=== PATIENT | male | born 1935 | race Caucasian/White ===

== ENCOUNTER → 2017-06-28 | Outpatient (CLI) | payer OTHER ==
[~2017-06-28] MED LIST: ADVIN25/60 INH; PRED10TA PO
[2017-06-28 16:56] LABS: BASO % 0.2 %; BASO ABS # 0.01 K/uL (0-0.2); EOS % 1.2 %; EOS ABS # 0.08 K/uL (0-0.5); HEMATOCRIT 39.1 % (42-52); HEMOGLOBIN 13.1 g/dL (14.0-18.0); IG# 0.02 K/uL (0.00-0.02); LYMPH % 23.4 %; LYMPH ABS # 1.55 K/uL (1.2-3.4); MEAN CELL VOLUME 95.8 fL (80-100); MEAN CORPUSCULAR HEMOGLOBIN 32.1 pg (25-34); MEAN CORPUSCULAR HGB CONC 33.5 g/dl (32-36); MEAN PLATELET VOLUME 10.8 fL (7.4-10.4); MONO % 8.4 %; MONO ABS # 0.56 K/uL (0.11-0.59); NEUT % 66.5 %; NEUT ABS # 4.41 K/uL (1.4-6.5); PLATELET COUNT 222 K/uL (130-400); RED CELL DISTRIBUTION WIDTH CV 12.9 % (11.5-14.5); RED CELL DISTRIBUTION WIDTH SD 44.9 fL (36.4-46.3); WHITE BLOOD COUNT 6.63 K/uL (4.8-10.8)
[2017-06-28 17:07] LABS: ALBUMIN 3.6 gm/dl (3.4-5.0); ALT/SGPT 23 U/L (12-78); AST/SGOT 22 U/L (15-37); BLOOD UREA NITROGEN 17 mg/dl (7-18); CALCIUM 8.5 mg/dl (8.5-10.1); CARBON DIOXIDE 28 mmol/L (21-32); CHOLESTEROL 169 mg/dl (0-200); CREATININE 1.03 mg/dl (0.60-1.40); GLUCOSE 93 mg/dl (70-99); POTASSIUM 4.4 mmol/L (3.5-5.1); SODIUM 139 mmol/L (136-145)
[2017-06-28 17:10] LABS: ALKALINE PHOSPHATASE 70 U/L (45-117); LDL CHOLESTEROL CALCULATED 80 mg/dl; TOTAL PROTEIN 6.9 gm/dl (6.4-8.2)
== END | disposition home or self-care (01) ==
LOC: C.LAB 11:55
PROVIDERS: ATTEND Internal Medicine Geriatric Medicine
DX: D64.9 Anemia, unspecified (principal); E78.5 Hyperlipidemia, unspecified

== ENCOUNTER 2024-12-30 12:50 | Observation (INO) ==
--- NOTE | 2024-12-30 13:05 | Emergency Department Note ---
Impression & Plan Syncope and collapse, Acute dehydration ED Provider Note Name: JOHN CURIEL Age: 89 Sex: Male Arrives Via: Ambulance Informant: Patient, son ED Provider: Cayetano Caruso MD Chief Complaint: Syncope Impression: As per impressions above Medical Decision Making: Pleasant 89-year-old gentleman arrives to the ER after a syncopal event at [facility]. According to son syncopal event actually was almost 30 minutes in length where initially EMS had reported was a few minutes. On arrival to ER patient is awake alert oriented neurologically intact. He is appears a bit confused by what ever thing it happened but he is not in any distress here in the ER. Vital signs show mild hypotension and labs show mildly elevated BUN. Suspect much of this is dehydrational and thus he was given IV fluids. He appears better with fluids as well. Initial EKG and troponin are unremarkable. Given the prolonged syncopal event no I do not think it would be safe to discharge patient at this time and he was discussed with hospital service will further evaluate and manage. Patient does not have any significant shortness of breath I do not feel this is consistent with PE. He did have a CT of the head which is unremarkable ruling out intracranial hemorrhage or mass effect. Without neurodeficits would hold off on CT angiography or immediate MRI at this point. Triage/Nursing Notes reviewed by Me External Chart Review by me: PCP note from 10/08/2024 was reviewed by me for past medical history. Differential:Vasovagal event, dehydration, infection, hypoglycemia, electrolyte abnormalities, cardiac sources, intracerebral event, pulmonary embolism, seizure, toxicologic, neurologic, as well as other pathologies. Vital Signs: reviewed and remarkable for hypertension for patient Interventions: Normal saline bolus 1 L IV Labs:ED labs Reviewed by me and remarkable for no significant abnormalities Imaging:CT of the head without contrast as per my informal interpretation reveals no intracranial hemorrhage or mass effect. Confirmed by radiologist 1 view chest x-ray as per my interpretation no infiltrate or effusion or pneumothorax appreciated. EKG:As per my interpretation. Indication syncope. Sinus at 66 bpm with a QTc of 448. No ischemia appreciated. When compared to EKG of December 01, 2017 no significant change in morphology PVCs noted.Cardiac/Tele Monitoring: Cardiac Monitoring: An Order was placed for continuous cardiac monitoring. The monitor shows a rate of 60 with a normal sinus rhythm. Consults:Discussed with Dr. Santiago of the hospitalist service who will further evaluate Plan: Disposition:Hospitalization. Condition: Fair History of Present Illness: 89-year-old gentleman arrives for evaluation of a syncopal event. Patient was at [facility] when he passed out. Apparently was quite diaphoretic and fong appearing. Patient slowly came back to. Patient states he is feeling well. He denies any headache, neck pain, nausea. Denies any chest pain, shortness of breath, lightheadedness, abdominal pain or other concerning signs or symptoms. Patient does note that he gets lightheaded with standing for the last several years. He also has a history of anemia. Denies any other concerning changes. No medications prior to arrival. Past Medical History:See Below Home Medications:See Below Allergies: Bactrim Vitals:Blood Pressure: 108/60, Pulse 70, RR 16, T []C, O2 98% on RA Physical Exam: GENERAL: Patient is elderly/frail/dehydrated appearing and in no acute distress. Pale conjunctiva RESPIRATORY: No dyspnea. Clear to auscultation and equal bilaterally. CARDIOVASCULAR: Regular rate and rhythm.No murmur appreciated. GASTROINTESTINAL: Abdomen soft, non-tender, no peritonitis. EXTREMITIES: Mildly swollen left lower leg. Patient states this is chronic. Normal motion all extremities, no cyanosis, no edema. NEUROLOGIC: Alert and oriented. No focal neurologic deficits appreciated SKIN: No rash, no jaundice, no diaphoresis. PSYCH: Appropriate GCS: 15 ED Course: Times/Reassessments: Patient does seem a bit better with IV fluids. He is agreeable to hospitalization given the syncope Cayetano Caruso MD Past Med/Surg History Problem List (Updated 12/31/24 @ 10:30 by Cayetano Caruso MD) Acute dehydration (Acute) Syncope and collapse (Acute) Syncope Non-healing skin lesion Lower urinary tract symptoms (LUTS) Hx of brachytherapy Urinary Incontinence Dermatitis associated with moisture Skin tag Leg edema Left leg 2/2 Venous insufficiency in [place] 07/2022. Urinary frequency Ambulatory dysfunction Asthma Dyslipidemia (Chronic) Dizziness Anemia (Chronic) Antiplatelet or antithrombotic long-term use TRUONG (dyspnea on exertion) Positive cardiac stress test Psoriasis Associated with Arthritis - On Prednisone 5mg/day shelter. Osteopenia (Chronic) Medical History (Updated 12/31/24 @ 10:30 by Cayetano Caruso MD) H/O prostate cancer (~2004) Palpitations Syncope (11/08/21) Nonsustained paroxysmal ventricular tachycardia Nonsustained paroxysmal supraventricular tachycardia Normal left ventricular systolic function Sensorineural hearing loss (SNHL) of both ears History of smokeless tobacco use Tubular adenoma of colon History of SCC (squamous cell carcinoma) of skin History of basal cell carcinoma Former smoker Lower GI bleed Dyslipidemia Asthma Hiatal hernia Surgical History History of surgery Prostate surgery History of gastric surgery H/O colonoscopy H/O right knee surgery History of brachytherapy Family History Unknown Brain tumor Father Prostate cancer Brother Stroke Other Asthma Breast cancer Cancer Hearing loss Denies family history of Ovarian cancer Diabetes No family history of adverse response to anesthesia No family history of bleeding disorder Heart disease Allergies Myocardial infarction Lung cancer Colorectal cancer Hypertension Social History (Updated 10/08/24 @ 14:51 by Rosario Tai LPN) Smoking Status: Former smoker Tobacco Type: Cigars Age Started Using Tobacco: 79; Age Quit Using Tobacco: 89; Second Hand Exposure: No; Do You Dip or Chew Tobacco: Yes; Hx Alcohol Use: No Hx Substance Use: No Preferred Language: Macedonian Visual Impairment: Partially Limited Hearing Ability: Use of Hearing Aid 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 Required: No Beliefs That Will Affect Care: None marital status: Current Living Situation: Spouse Current Living Situation Comment: 2 story house with current occupational status: retired How many Children do You have: 4 Feels Safe at Home: Yes Safety Concerns: Feels Safe At This Time Childhood Exposure to Second-Hand Smoke: No Diet: regular caffeine: Yes during the past year weight has: decreased > 10 lbs Dental Care, Regularly: No Physical Activity Frequency: Does not Exercise Seatbelt Use: never Sunscreen Use: No Assistive Devices: Denture - Upper, Denture - Lower and Hearing Aid - Bilateral Allergies Allergies Allergy/AdvReac Type Severity Reaction Status Date / Time sulfamethoxazole AdvReac Mild Nausea Verified 10/17/24 08:35 [From Bactrim] trimethoprim [From Bactrim] AdvReac Mild Nausea Verified 10/17/24 08:35 Home Meds Home Medications Medication Instructions Recorded Confirmed acetaminophen 500 mg tablet 500 mg PO TID PRN Pain #90 tabs 09/26/18 12/30/24 Previous Rx's Medication Instructions Recorded aspirin 81 mg tablet,delayed 81 mg PO DAILY #90 tabs 11/09/19 release (Adult Low Dose Aspirin) albuterol sulfate 90 mcg/actuation 2 puff inhalation QID PRN 12/27/23 aerosol inhaler shortness of breath or wheezing #6.7 grams simvastatin 20 mg tablet 20 mg PO HS #90 tabs 02/08/24 triamcinolone acetonide 0.1 % 1 applic topical BID PRN psoriasis 05/18/24 topical ointment #80 grams budesonide-formoterol HFA 160 1 inh inhalation BID #10.2 grams 10/08/24 mcg-4.5 mcg/actuation aerosol inhaler (Symbicort) meloxicam 7.5 mg tablet 7.5 mg PO DAILY sciatic #90 tabs 10/19/24 Results & Data (ED) Vital Signs Vital Signs - 24 hr 12/30/24 12:59 12/30/24 13:07 12/30/24 13:33 Temperature 36.4 C L Temperature Source Oral Pulse Rate - Lying 65 Pulse Rate - Sitting 71 Pulse Rate - Standing 74 Pulse Rate 64 71 Respiratory Rate 14 Blood Pressure - Lying 129/70 Blood Pressure - Sitting 136/70 Blood Pressure- Standing 117/58 L Blood Pressure 108/70 Blood Pressure Mean 82 Pulse Oximetry 95 Oxygen Delivery Method Room Air Sepsis Recent Fever Within 48 Hours No Sepsis New/Unexplained Change in Mental Status N/A Sepsis Action Taken by Nursing No Action Required Laboratory Data 12/30/24 13:01 12/30/24 13:01 Lab Results 12/30/24 Range/Units 13:01 WBC 9.02 (4.8-10.8) K/ul RBC 3.53 L (4.70-6.10) M/uL Hgb 11.3 L (14.0-18.0) g/dl Hct 34.3 L (42.0-52.0) % MCV 97.2 (80.0-100.0) fL MCH 32.0 (25.0-34.0) pg MCHC 32.9 (32.0-36.0) g/dL RDW Std Deviation 43.3 (36.4-46.3) fL RDW Coeff of Ajay 12.0 (11.5-14.5) % Plt Count 164 (130-400) K/uL MPV 10.3 (9.4-12.4) fL Immature Gran % (Auto) 0.3 % Neut % (Auto) 82.3 % Lymph % (Auto) 9.3 % Towns % (Auto) 6.7 % Eos % (Auto) 1.2 % Baso % (Auto) 0.2 % Neut # (Auto) 7.42 H (1.40-6.50) K/uL Lymph # (Auto) 0.84 L (1.20-3.40) K/uL [place] # (Auto) 0.60 H (0.11-0.59) K/uL Eos # (Auto) 0.11 (0.00-0.50) K/uL Baso # (Auto) 0.02 (0.00-0.20) K/uL Immature Gran # (Auto) 0.03 (0.01-0.20) K/uL Sodium 138 (136-145) mmol/L Potassium 4.4 (3.5-5.1) mmol/L Chloride 105 (98-107) mmol/L Carbon Dioxide 26 (21-32) mmol/L Anion Gap 7 (3-11) BUN 29 H (6-23) mg/dl Creatinine 1.52 H (0.6-1.4) mg/dl Est Cr Clr Drug Dosing 39.3 ml/min eGFR 44.07 BUN/Creatinine Ratio 19.1 (10-20) Glucose 116 H (70-99(Fasting)) mg/dl Calcium 8.9 (8.6-10.3) mg/dl Magnesium 2.0 (1.7-2.4) mg/dl Troponin I High Sens 7.6 (0-20) pg/ml C-Reactive Protein < 0.50 (0-0.5) mg/dl Procalcitonin 0.05 (0-0.5) ng/ml Administered Medications Fluticasone/Vilanterol (Fluticasone/Vilanterol 200/25mcg 14 Puffs/Inhaler) 1 puffs INH DAILY GARTH; Protocol Stop: 01/30/25 08:59 Last Admin: 12/31/24 09:01 Dose: 1 puffs Documented By: CMM Ceftriaxone Sodium (Rocephin) 2,000 mg in 50 mls @ 100 mls/hr IV Q24H GARTH Stop: 01/04/25 16:29 Last Infusion: 12/30/24 18:10 Dose: Infused Documented By: Admin: 12/30/24 17:29 Dose: 100 mls/hr Documented By: MARY Simvastatin (Simvastatin 20 Mg Tab) 20 mg PO HS GARTH Stop: 01/29/25 20:59 Last Admin: 12/30/24 20:03 Dose: 20 mg Documented By: JEREL Discontinued Medications Sodium Chloride (Nss) 1,000 mls @ 999 mls/hr IV .Q1H1M ONE Stop: 12/30/24 14:02 Last Infusion: 12/30/24 15:16 Dose: Infused Documented By: Admin: 12/30/24 13:42 Dose: 999 mls/hr Documented By: PAULO Lactated Ringer's (Lr) 1,000 mls @ 125 mls/hr IV .Q8H GARTH Stop: 12/30/24 23:44 Last Infusion: 12/31/24 00:59 Dose: Infused Documented By: Infusion: 12/30/24 18:10 Dose: 125 mls/hr Documented By: Infusion: 12/30/24 17:33 Dose: 0 mls/hr Documented By: Admin: 12/30/24 15:41 Dose: 125 mls/hr Documented By: AMS Discharge Plan Visit Data Chief Complaint: Syncope ED Provider: Cayetano Caruso Discharge Problem: Syncope and collapse, Acute dehydration Patient Disposition: Admitted As Inpatient Condition: Fair Discharge Instructions Interventions: ED Discharge Assessment Last Done: 12/30/24 15:12
[2024-12-30 13:24] LABS: Hematocrit (blood only) 34.3 % (42.0-52.0); Hemoglobin 11.3 g/dl (14.0-18.0); Immature Granulocytes # (auto) 0.03 K/uL (0.01-0.20); Immature Granulocytes % (auto) 0.3 %; Mean Corpuscular Hemoglobin 32.0 pg (25.0-34.0); Mean Corpuscular Volume 97.2 fL (80.0-100.0); Platelet Count 164 K/uL (130-400); RDW Standard Deviation 43.3 fL (36.4-46.3); Red Blood Count 3.53 M/uL (4.70-6.10); White Blood Count 9.02 K/ul (4.8-10.8)
--- NOTE | 2024-12-30 13:33 | XRay Report ---
XR chest 1V portable CLINICAL HISTORY: syncope COMPARISON STUDY: 12/27/2023 FINDINGS: Heart size and pulmonary vasculature are normal. No consolidation or pleural effusion seen. No pneumothorax. Stable mild scarring or atelectasis at the left base. IMPRESSION: No acute findings. ACT 112: Negative or not required by law. Electronically signed by: Douglas Gómez M.D. 12/30/2024 1:32 PM
[2024-12-30 13:39] LABS: Anion Gap 7 (3-11); Blood Urea Nitrogen 29 mg/dl (6-23); Calcium 8.9 mg/dl (8.6-10.3); Carbon Dioxide 26 mmol/L (21-32); Chloride 105 mmol/L (98-107); Creatinine Clr Calc Pharmacy 39.3 ml/min; Glucose 116 mg/dl (70-99(Fasting)); Magnesium 2.0 mg/dl (1.7-2.4); Potassium 4.4 mmol/L (3.5-5.1); Sodium 138 mmol/L (136-145)
[2024-12-30] MEDS: SODIUM CHLORIDE 0.9% 1,000 ML IV ONE (13:42)
--- NOTE | 2024-12-30 13:51 | CT Scan Report ---
CT head/brain wo con CLINICAL HISTORY: syncope. TECHNIQUE: Multiple axial CT images of the head were obtained without contrast. A dose lowering tech nique was utilized adhering to the principles of ALARA. CT DOSE: 625.8 mGy.cm COMPARISON: 04/10/2020 FINDINGS: No intracranial hemorrhage seen. No mass effect, midline shift, or hydrocephalus. There are mild chronic small vessel ischemic changes. No skull fracture seen. Visualized paranasal sinuses and mastoid air cells are clear. IMPRESSION: No acute findings. ACT 112: Negative or not required by law. The above report was generated using voice recognition software. It may contain grammatical, syntax o r spelling errors. Electronically signed by: Douglas Gómez M.D. 12/30/2024 1:50 PM
[2024-12-30] MEDS ORDERED: ACETAMINOPHEN 325 MG TAB PO PRN (15:16)
[2024-12-30 15:36] LABS: Influenza A virus by PCR Negative (Neg); Influenza B virus by PCR Negative (Neg); SARS CoV2 RNA(COVID-19) Ceph NEGATIVE (Negative)
[2024-12-30] MEDS ORDERED: TRIAMCINOLONE ACET 0.1% OINT 15 GM TUBE TOP PRN (15:38)
[2024-12-30] MEDS ORDERED: ALBUTEROL HFA 8 GM INHALER INH PRN (15:38)
[2024-12-30] MEDS ORDERED: ACETAMINOPHEN 500 MG TAB PO PRN (15:38)
--- NOTE | 2024-12-30 15:40 | History & Physical Report ---
Date of Service December 30, 2024 Assessment & Plan (1) Syncope: (2) Leg edema: (3) Psoriasis: Plan #Syncope Suspect cause is multifactorial with baseline dizziness with ambulatory dysfunction (Prior evaluation with MRI, IAC and ENT with no change in underlying symptoms or additional treatment per prior Wellness visit), dehydration, working hard this morning prior to prolonged standing at latter day with URI Sx for last 2 days precipitating a vagal mediated syncope Suspect prolonged as reportedly still sitting up when his son arrived. Appeared pale and frothing at mouth. Previous syncope in October 2021 sounds similar with initial pain in back and felt dizziness Observe overnight for arrhythmia Apical murmur on exam - will update TTE Left leg more swollen than right - this appears to be chronic with prior negative venous doppler in 2022 and GSV ablation for venous reflux, no further workup of this is required UA pending #Psoriasis with arthritis Continue steroids cream PRN #Asthma Continue Symbicort or hospital equivalent VTE Prophylaxis - low risk observation overnight Disposition - observation to med/tele, PT/OT, if all testing normal and doing well with PT/OT tomorrow can likely be discharged at that time Admission and Anticipated Discharge Date Admission Date: December 30, 2024 History of Present Illness Chief Complaint: Syncope Primary Care Provider: Robert Antunez DO [place] Briceno is an 89 year old male who presents to the ER with a syncopal event while standing at latter day. The patient remembers feeling faint and then doesn't remember anything else until being transported to the emergency room. He notes having a cough the last few days but otherwise has felt well and was going out on 4 wheelers earlier today and climbing ladders up a tree. Story confirmed with son at bedside. His son was informed that his father had fainted and was not feeling well at latter day. By the time his son got to him, it was around 30 minutes later, he was still unresponsive, baker color, sitting upright and frothing from the mouth. He currently feels at his baseline. No fever, chills, gastrointestinal or urinary symptoms. No one sided weakness or facial droop. No change in speech, hearing or vision. Allergies Allergy/AdvReac Type Severity Reaction Status Date / Time sulfamethoxazole AdvReac Mild Nausea Verified 10/17/24 08:35 [From Bactrim] trimethoprim [From Bactrim] AdvReac Mild Nausea Verified 10/17/24 08:35 Home Medications Medication Instructions Recorded Confirmed Type acetaminophen 500 mg tablet 500 mg PO TID PRN Pain #90 tabs 09/26/18 12/30/24 History aspirin 81 mg tablet,delayed 81 mg PO DAILY #90 tabs 11/09/19 12/30/24 Rx release (Adult Low Dose Aspirin) albuterol sulfate 90 mcg/actuation 2 puff inhalation QID PRN 12/27/23 12/30/24 Rx aerosol inhaler shortness of breath or wheezing #6.7 grams simvastatin 20 mg tablet 20 mg PO HS #90 tabs 02/08/24 12/30/24 Rx triamcinolone acetonide 0.1 % 1 applic topical BID PRN psoriasis 05/18/24 12/30/24 Rx topical ointment #80 grams budesonide-formoterol HFA 160 1 inh inhalation BID #10.2 grams 10/08/24 12/30/24 Rx mcg-4.5 mcg/actuation aerosol inhaler (Symbicort) meloxicam 7.5 mg tablet 7.5 mg PO DAILY sciatic #90 tabs 10/19/24 12/30/24 Rx Past Med/Surg History Problem List (Updated 12/31/24 @ 10:30 by Cayetano Caruso MD) Acute dehydration (Acute) Syncope and collapse (Acute) Syncope Non-healing skin lesion Lower urinary tract symptoms (LUTS) Hx of brachytherapy Urinary Incontinence Dermatitis associated with moisture Skin tag Leg edema Left leg 2/2 Venous insufficiency in [facility] 07/2022. 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 Osteopenia (Chronic) Medical History (Updated 12/31/24 @ 10:30 by Cayetano Caruso MD) H/O prostate cancer (~2004) Palpitations Syncope (11/08/21) Nonsustained paroxysmal ventricular tachycardia Nonsustained paroxysmal supraventricular tachycardia Normal left ventricular systolic function Sensorineural hearing loss (SNHL) of both ears History of smokeless tobacco use Tubular adenoma of colon History of SCC (squamous cell carcinoma) of skin History of basal cell carcinoma Former smoker Lower GI bleed Dyslipidemia Asthma Hiatal hernia Surgical History History of surgery Prostate surgery History of gastric surgery H/O colonoscopy H/O right knee surgery History of brachytherapy Family History Unknown Brain tumor Father Prostate cancer Brother Stroke Other Asthma Breast cancer Cancer Hearing loss Denies family history of Ovarian cancer Diabetes No family history of adverse response to anesthesia No family history of bleeding disorder Heart disease Allergies Myocardial infarction Lung cancer Colorectal cancer Hypertension Social History (Updated 10/08/24 @ 14:51 by Rosario Tai LPN) Smoking Status: Former smoker Tobacco Type: Cigars Age Started Using Tobacco: 79; Age Quit Using Tobacco: 89; Second Hand Exposure: No; Do You Dip or Chew Tobacco: Yes; Hx Alcohol Use: No Hx Substance Use: No Preferred Language: Wolof Visual Impairment: Partially Limited Hearing Ability: Use of Hearing Aid Safety And Security Officer Required: No Beliefs That Will Affect Care: None marital status: Current Living Situation: Spouse Current Living Situation Comment: 2 story house with current occupational status: retired How many Children do You have: 4 Feels Safe at Home: Yes Safety Concerns: Feels Safe At This Time Childhood Exposure to Second-Hand Smoke: No Diet: regular caffeine: Yes during the past year weight has: decreased > 10 lbs Dental Care, Regularly: No Physical Activity Frequency: Does not Exercise Seatbelt Use: never Sunscreen Use: No Assistive Devices: Denture - Upper, Denture - Lower and Hearing Aid - Bilateral Review of Systems Review of Systems: All systems reviewed & are unremarkable except as noted in HPI & below Physical Exam Constitutional: WD/WN, vitals as above ENMT: external ear and nose normal, oropharynx normal Respiratory: normal respiratory effort, lungs clear to auscultation Cardiovascular: Rate/Rhythm: regular rate and regular rhythm Heart Sounds: + murmur (2/6 apical systolic murmur) Extremities: normal capillary refill and + pedal edema (Left > right leg swelling); no calf tenderness Gastrointestinal (Abdomen): normal bowel sounds, soft, nontender, no hepatosplenomegaly Musculoskeletal: no cyanosis or clubbing, extremities motor strength 5/5 Skin: no rashes, warm and dry Neurologic: moves all extremities and awake; not confused Psychiatric: A+Ox3, euthymic affect Results & Data Results & Data Vital Signs (Past 12 Hours) Vital Signs Temp Pulse Resp BP BP Pulse Ox Pulse Ox 12/30/24 15:17 94 12/30/24 15:17 36.6 C 162/79 H 94 12/30/24 15:17 94 12/30/24 13:33 71 12/30/24 12:59 36.4 C L 64 14 108/70 95 O2 Del Method O2 Del Method 12/30/24 15:17 Room Air 12/30/24 15:17 Room Air 12/30/24 15:17 Room Air 12/30/24 13:33 12/30/24 12:59 Room Air Laboratory Results Abnormal lab results 12/30/24 Range/Units 13:01 RBC 3.53 L (4.70-6.10) M/uL Hgb 11.3 L (14.0-18.0) g/dl Hct 34.3 L (42.0-52.0) % Neut # (Auto) 7.42 H (1.40-6.50) K/uL Lymph # (Auto) 0.84 L (1.20-3.40) K/uL [place] # (Auto) 0.60 H (0.11-0.59) K/uL BUN 29 H (6-23) mg/dl Creatinine 1.52 H (0.6-1.4) mg/dl Glucose 116 H (70-99(Fasting)) mg/dl Diagnostic Findings XR chest 1V portable CLINICAL HISTORY: syncope COMPARISON STUDY: 12/27/2023 FINDINGS: Heart size and pulmonary vasculature are normal. No consolidation or pleural effusion seen. No pneumothorax. Stable mild scarring or atelectasis at the left base. IMPRESSION: No acute findings. Medications Administered ER Medications Given: Normal saline 1L bolus ECG Rate (beats per minute): 66 Rhythm: normal sinus Findings: + nonspecific-ST abn and + PVC Comparison ECG Date: from (December 01, 2017) Change: the following changes noted (PVCs now present, non-specific change in ST segment in lateral leads) Code Status & VTE Plan Code Status Full VTE Prophylaxis Plan VTE Prophylaxis will be ordered: Yes PG Care Time/CCT Total # of Minutes Spent Total Time Spent with Patient: Total time spent is greater than 50% in coordination of care (as documented) at patient's floor/unit and/or counseling patient: Coding Level of Care Code 72710 INT INP/OBS CARE 3/75MIN Diagnoses Syncope R55 Leg edema R60.0 Psoriasis L40.9
[2024-12-30] MEDS: LACTATED RINGER'S 1,000 ML IV SCH (15:41)
[2024-12-30 15:48] LABS: Appearance Urine Cloudy (Clear); Bacteria Urine Automated 1+ (None Seen); Epithelial Cell Urine Auto 0-2 /hpf (0-2); Glucose Urine UA Negative (Negative); WBC Urine Automated >50 /hpf (0-5)
[2024-12-30] MEDS ORDERED: INFLUENZA VACC TS2025-26(65y+)/PF (IIV3) 0.5mL Syr IM ONE (16:49)
[2024-12-30] MEDS ORDERED: PNEUMOCOCCAL VACCINE (PCV20) 20-VAL CONJ-DIP CRM/PF 0.5 ML SYR IM ONE (16:49)
[2024-12-30] MEDS: cefTRIAXone SODIUM 2,000 MG/50 ML BAG IV SCH (17:29)
[2024-12-30] MEDS: SIMVASTATIN 20 MG TAB PO SCH (20:03)
--- NOTE | 2024-12-30 22:44 | XCELERA ---
[id number]
[2024-12-31 07:53] VITALS: TEMP 98.4; O2SAT 92
[2024-12-31] MEDS: FLUTICASONE/VILANTEROL 200/25MCG 14 PUFFS/INHALER INH SCH (09:01)
--- NOTE | 2024-12-31 11:46 | Electrocardiogram Report ---
Test Reason : Blood Pressure : */* mmHG Vent. Rate : 66 BPM Atrial Rate : 66 BPM P-R Int : 144 ms QRS Dur : 90 ms QT Int : 428 ms P-R-T Axes : -10 -10 21 degrees QTcB Int : 448 ms Sinus rhythm with occasional Premature ventricular complexes Otherwise normal ECG When compared with ECG of 01-Dec-2017 05:42, Premature ventricular complexes are now Present Non-specific change in ST segment in Lateral leads Confirmed by Aj Mi ([id number]) on 12/31/2024 11:46:22 AM Referred By: Confirmed By: Aj Mi
[2024-12-31 12:09] VITALS: BP 138/73; RESP 16
[2024-12-31] MEDS: ASPIRIN 81 MG ECTAB PO SCH (12:48)
[2024-12-31] MEDS: MELOXICAM 7.5 MG TAB PO SCH (12:49)
[2024-12-31] MEDS: AMOXICILLIN/CLAVULANATE 875 MG TAB PO ONE (12:49)
[2024-12-31 13:45] LABS: Anion Gap 6.0 (3-11); Blood Urea Nitrogen 29.0 mg/dl (6-23); Calcium 8.6 mg/dl (8.6-10.3); Carbon Dioxide 27.0 mmol/L (21-32); Chloride 106.0 mmol/L (98-107); Creatinine Clr Calc Pharmacy 35.7 ml/min; Glucose 127.0 mg/dl (70-99(Fasting)); Potassium 4.0 mmol/L (3.5-5.1); Sodium 139.0 mmol/L (136-145)
--- NOTE | 2024-12-31 14:08 | Discharge Summary ---
Discharge Summary Date of Service December 31, 2024 Principal Dx & Hospital Course #1 = Principal Diagnosis (1) Syncope: (2) Leg edema: (3) Psoriasis: (4) UTI (urinary tract infection): Plan Denver Briceno is an 89 year old male observed overnight from December 30 - 2024 due to fainting at congregation. He was diagnosed with syncope likely as a result of recent viral respiratory illness, dehydration and possible urine trace infec tion. COVID, influenza and RSV testing was negative. Echocardiogram did not show any concerning features contributing towards your syncope. No arrhythmias on telemetry overnight. Urine culture grew proteus mirabilis. Sensitivity to antibiotics pending at discharge but generally Augmentin covers this well and he will be discharged with a further 4 days of this. Physical and occupational therapy determined he was at your baseline functioning. Creatinine is increased from his baseline in April despite intravenous fluids. Recommend he continues to keep hydrated drinking water. Likely this is a result of dehydration and his urine tract infection. Recommend holding off the meloxicam until repeat labs with his primary care provider to make sure your renal function returns to normal. Post void bladder scan < 200ml on discharge. Notes For Next Care Provider Repeat BMP in 1-2 weeks to check Cr back to normal and can restart meloxicam at that time Medication Changes From Visit Augmentin for UTI Meloxicam on hold due to bump in Cr Admission HPI Per Admitting Provider Denver Briceno is an 89 year old male who presents to the ER with a syncopal event while standing at congregation. The patient remembers feeling faint and then doesn't remember anything else until being transported to the emergency room. He notes having a cough the last few days but otherwise has felt well and was going out on 4 wheelers earlier today and climbing ladders up a tree. Story confirmed with son at bedside. His son was informed that his father had fainted and was not feeling well at congregation. By the time his son got to him, it was around 30 minutes later, he was still unresponsive, baker color, sitting upright and frothing from the mouth. He currently feels at his baseline. No fever, chills, gastrointestinal or urinary symptoms. No one sided weakness or facial droop. No change in speech, hearing or vision. Discharge Exam Constitutional WD/WN, vitals as above Respiratory normal respiratory effort, lungs clear to auscultation Cardiovascular Rate/Rhythm: regular rate and regular rhythm Extremities: normal capillary refill and + pedal edema (Left > right leg swelling); no calf tenderness Gastrointestinal (Abdomen) normal bowel sounds, soft, nontender, no hepatosplenomegaly Skin no rashes, warm and dry Neurologic moves all extremities and awake; not confused Psychiatric A+Ox3, euthymic affect Genitourinary no CVA tenderness Discharge Plan Discharge Items Patient Disposition: Home - Self-Care Reason For Visit: PROLONGED SYNCOPE Discharge Diagnosis: Syncope UTI Condition on Discharge: Fair Activity: Resume your previous activity Non-emergency contact: Primary Care Provider Call non-emergency contact if: you have any medication questions and your symptoms worsen Follow-up/Referrals: Robert Antunez DO [Primary Care Provider] - 01/10/25 11:30 am Diet: Regular Addtl Attending Provider Instructions: You were observed overnight from December 30 - 2024 due to fainting. You were diagnosed with syncope likely as a result of recent viral respiratory illness and possible urine trace infection. COVID, influenza and RSV testing was negative. Echocardiogram did not show any concerning features contributing towards your syncope. No arrhythmias on telemetry overnight. Urine culture grew proteus mirabilis. Sensitivity to antibiotics pending at discharge but generally Augmentin covers this well and you will be discharged with a further 4 days of this. Physical and occupational therapy determined you were at your baseline functioning. Creatinine is increased from your baseline in April despite intravenous fluids. Recommend you keep yourself hydrated drinking water. Likely this is a result of dehydration and your urine tract infection. Recommend holding off the meloxicam until repeat labs with your primary care provider to make sure your renal function returns to normal. Pending Studies at Discharge: No Stand-Alone Forms: [facility] Medications and DC Order Prescriptions: New amoxicillin-pot clavulanate [Augmentin] 500-125 mg tablet 1 tab PO BID 4 Days Qty: 8 0RF Continued triamcinolone acetonide 0.1 % ointment 1 applic topical BID PRN (Reason: psoriasis) Qty: 80 1RF aspirin [Adult Low Dose Aspirin] 81 mg tablet,delayed release (DR/EC) 81 mg PO DAILY Qty: 90 3RF acetaminophen 500 mg tablet 500 mg PO TID PRN (Reason: Pain) Qty: 90 simvastatin 20 mg tablet 20 mg PO HS Qty: 90 3RF budesonide-formoterol [Symbicort] 160-4.5 mcg/actuation HFA aerosol inhaler 1 inh inhalation BID Qty: 10.2 5RF albuterol sulfate 90 mcg/actuation HFA aerosol inhaler 2 puff inhalation QID PRN (Reason: shortness of breath or wheezing) Qty: 6.7 0RF Held meloxicam 7.5 mg tablet 7.5 mg PO DAILY Qty: 90 0RF Hold Instructions: Resume on 01/07/25. hold until repeat labs with your primary care provider Discharge Orders: Discharge Order (Routine); Ordered 12/31/24 Ordered By: David Santiago Admission Data Admit Date/Time: 12/30/24 14:18 Attending Provider: David Santiaog Admit Provider: David Santiago Primary Care Provider: Robert Antunez Other Providers: Avi Crystal Other Interventions: Discharge Summary Assessment (RN) Last Done: 12/31/24 15:46 Hospital Stay Data Consultations 12/30/24 14:12 ED Decision to Admit Stat Diagnostic Imagining Performed 12/30/24 13:02 CT head/brain wo con Stat Pending Results Patient Have Any Pending Studies at Discharge: No Discharge Instructions Given to Patient (Per Discharging Provider) You were observed overnight from December 30 - 2024 due to fainting. You were diagnosed with syncope likely as a result of recent viral respiratory illness and possible urine trace infection. COVID, influenza and RSV testing was negative. Echocardiogram did not show any concerning features contributing towards your syncope. No arrhythmias on telemetry overnight. Urine culture grew proteus mirabilis. Sensitivity to antibiotics pending at discharge but generally Augmentin covers this well and you will be discharged with a further 4 days of this. Physical and occupational therapy determined you were at your baseline functioning. Creatinine is increased from your baseline in April despite intravenous fluids. Recommend you keep yourself hydrated drinking water. Likely this is a result of dehydration and your urine tract infection. Recommend holding off the meloxicam until repeat labs with your primary care provider to make sure your renal function returns to normal. Total Time Total Time Spent Total Time Spent (In Minutes): 40 Total Time Includes: Examination of the Patient, Discharge Planning and Medication Reconciliation Coding Level of Care Code 04096 INP/OBS DISCH >30 MIN Diagnoses Syncope R55 Leg edema R60.0 Psoriasis L40.9 UTI (urinary tract infection) N39.0
[2024-12-31 14:45] VITALS: PULSE 68
== END 2024-12-31 16:46 | disposition home or self-care (01) ==
LOC: ED 12:50 → 2N 12:50